=== PATIENT | male | born 1980 | race Caucasian/White ===

== ENCOUNTER 2019-09-11 09:50 | Emergency (ER) | payer SELFPAY ==
[~2019-09-11] VITALS: Ht 172.7 cm; Wt 90.0 kg
[~2019-09-11 09:50] MED LIST: NO HOME MEDS
[2019-09-11 09:53] VITALS: BP 156/90
[2019-09-11] MEDS ORDERED: BACDS PO (10:15)
[2019-09-11] MEDS ORDERED: CEPH250T PO (10:15)
== END 2019-09-11 10:27 | disposition home or self-care (01) ==
LOC: ER 09:51
DX: L02.415 Cutaneous abscess of right lower limb (principal); F15.90 Other stimulant use, unspecified, uncomplicated; Z72.89 Other problems related to lifestyle; Z86.14 Personal history of Methicillin resistant Staphylococcus aureus infection; Z79.899 Other long term (current) drug therapy
CPT/HCPCS: 99284

== ENCOUNTER 2020-01-10 16:07 | Emergency (ER) | payer MEDICAID ==
[~2020-01-10] VITALS: Ht 172.7 cm; Wt 80.0 kg
[2020-01-10 16:11] VITALS: BP 138/84
--- NOTE | 2020-01-10 16:16 | NUR ---
Patient denies any complaint. 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 Patient last used 4 days ago.
== END 2020-01-10 16:32 | disposition home or self-care (01) ==
LOC: ER 16:07
DX: F15.10 Other stimulant abuse, uncomplicated (principal); F10.10 Alcohol abuse, uncomplicated; Z86.14 Personal history of Methicillin resistant Staphylococcus aureus infection; Y90.9 Presence of alcohol in blood, level not specified
CPT/HCPCS: 99281

== ENCOUNTER 2022-01-22 01:41 | Emergency (ER) | payer MEDICAID ==
[~2022-01-22] VITALS: Ht 175.3 cm; Wt 84.7 kg
[2022-01-22] MEDS ORDERED: sulfamethoxazole/trimethoprim DS (800/160mg) tablet PO ONE ×2 (03:10→03:15)
[2022-01-22] MEDS ORDERED: SULF1TAB45 PO (03:14)
[2022-01-22 03:34] VITALS: BP 144/100
== END 2022-01-22 03:35 | disposition home or self-care (01) ==
LOC: ER 01:41
DX: L97.519 Non-pressure chronic ulcer of other part of right foot with unspecified severity (principal); F17.200 Nicotine dependence, unspecified, uncomplicated; F15.20 Other stimulant dependence, uncomplicated
CPT/HCPCS: 99283